=== PATIENT | female | born 1955 | race Caucasian/White ===

== ENCOUNTER 2017-03-17 08:41 | Day surgery (SDC) | payer BC ==
[~2017-03-17 08:41] MED LIST: Lactated Ringers 1,000 ML IV SCH; Lidocaine 1%/Sod Bicarbonate in NS 8.4% 1 ML Syringe IV PRN; Sodium Chloride 0.9% 10 ML Syringe FLUSH PRN
--- NOTE | 2017-03-17 09:46 | PCM.PREANE ---
Preanesthetic Assessment - Anesthesia/Transfusion/Family Hx Anesthesia History: Prior Anesthesia Without Reaction Family History of Anesthesia Reaction: No Transfusion History: No Prior Transfusion(s) - Review of Systems General: No Symptoms Pulmonary: No Symptoms Cardiovascular: No Symptoms Gastrointestinal: No symptoms Neurological: No Symptoms Other: Reports: Neck Pain (sore today because of job) - Physical Assessment NPO Status Date: 03/16/17 NPO Status Time: 21:30 O2 Sat by Pulse Oximetry: 96 Respiratory Rate: 16 Vital Signs: Last Vital Signs Temp 99.0 F 03/17/17 08:55 Pulse 86 03/17/17 08:55 Resp 16 03/17/17 08:55 BP 121/88 03/17/17 08:55 Pulse Ox 96 03/17/17 08:55 Height: 5 ft 7 in Weight: 73.028 kg ASA Class: 2 Mental Status: Alert & Oriented x3 Airway Class: Mallampati = 1 Dentition: Reports: Normal Dentition Thyro-Mental Finger Breadths: 3 Mouth Opening Finger Breadths: 3 ROM/Head Extension: Full Lungs: Clear to auscultation, Normal respiratory effort Cardiovascular: Regular Rate, Regular Rhythm - Allergies Allergies/Adverse Reactions: Allergies Allergy/AdvReac Type Severity Reaction Status Date / Time milk Allergy Hives Verified 03/16/17 14:25 nut - unspecified [nut] Allergy Hives Verified 03/16/17 14:25 soybean Allergy Bronchospas Verified 03/16/17 14:25 ms venom-honey bee Allergy Cannot Verified 03/16/17 14:25 [bee venom (honey bee)] Remember - Blood Blood Available: No - Acknowledgements Anesthesia Type Planned: MAC Pt an Appropriate Candidate for the Planned Anesthesia: Yes Alternatives and Risks of Anesthesia Discussed w Pt/Guardian: Yes Pt/Guardian Understands and Agrees with Anesthesia Plan: Yes PreAnesthesia Questionnaire HEENT History: Reports: Otitis media, Other (see below) Other HEENT History: wears glasses, ear pain, eustachian tube dysfunction, sinus infection Cardiovascular History: Reports: High cholesterol, Hypertension Respiratory History: Reports: Other (see below) Other Respiratory History: cough Gastrointestinal History: Reports: None Genitourinary History: Reports: None 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) Other OB/BYN History: cervicitis with nabothian cyst Musculoskeletal History: Reports: Arthritis (hip pain), Back pain, chronic, Other (see below) Other Musculoskeletal History: back pain, restless leg syndrome Neurological History: Reports: None Psychiatric History: Reports: None Endocrine/Metabolic History: Reports: None Hematologic History: Reports: None Immunologic History: Reports: None Oncologic (Cancer) History: Reports: None Dermatologic History: Reports: Other (see below) Other Dermatologic History: contact dermatitis, pruritis - Past Surgical History HEENT Surgical History: Reports: Naso-sinus surgery GI Surgical History: Reports: Cholecystectomy, Colonoscopy Musculoskeletal Surgical History: Reports: Other (see below) Other Musculoskeletal Surgeries/Procedures:: R foot surgery, back surgery x 3 with hardware - SUBSTANCE USE Smoking Status *Q: Current Every Day Smoker (43 years- .5ppd) Tobacco Use Within Last Twelve Months: Cigarettes Second Hand Smoke Exposure: Yes Days Per Week of Alcohol Use: 1 (only social) Recreational Drug Use History: No - HOME MEDS Home Medications: Home Meds Amitriptyline HCl [Amitriptyline HCl] 25 mg PO BEDTIME 03/16/17 [History] Aspirin [Ecotrin] 81 mg PO DAILY 03/16/17 [History] Calcium Carbonate [Calcium] 600 mg PO BID 03/16/17 [History] Cyclobenzaprine [Flexeril] 10 mg PO BID PRN 03/16/17 [History] Gabapentin [Gabapentin] 300 mg PO BEDTIME 03/16/17 [History] Hydrocodone/Acetaminophen [Hydrocodon-Acetaminophn 10-325] 1 tab PO Q8H PRN 07/25 [History] Lisinopril/Hydrochlorothiazide [Lisinopril-Hctz 20-12.5 mg Tab] 1 tab PO DAILY 03/16/17 [History] Mometasone Furoate 1 applic TOP ASDIRECTED PRN 03/16/17 [History] Triamcinolone Acetonide [Triamcinolone Acetonide 0.1% Crm] 1 applic TOP BID 07/25 [History] carBAMazepine [Carbamazepine] 300 mg PO BID 03/16/17 [History] traMADol HCl [Tramadol HCl] 50 mg PO BEDTIME 03/16/17 [History] - CURRENT (IN HOUSE) MEDS Current Meds: Current Medications Lactated Ringer's (Ringers, Lactated) 1,000 mls @ 125 mls/hr IV ASDIRECTED KIM Lidocaine/Sodium Bicarbonate (Buffered Lidocaine 1% In Ns 8.4%) 0.25 ml IV ONETIME PRN PRN Reason: Prior to IV Start Sodium Chloride (Saline Flush) 10 ml FLUSH ASDIRECTED PRN PRN Reason: Keep Vein Open
[2017-03-17] MEDS ORDERED: Propofol 200 MG/20 ML SDV ONE (10:26)
[2017-03-17] MEDS ORDERED: fentaNYL 100 MCG/2 ML SDV ONE (10:26)
--- NOTE | 2017-03-17 11:08 | PCM.OPNOTE ---
- General Post-Op/Procedure Note Date of Surgery/Procedure: 03/17/17 Operative Procedure(s): colonoscopy with cold forceps polypectomy of a small splenic flexure polyp Findings: 1. external hemorrhoids 2. splenic flexure polyp less than 8 mm Pre Op Diagnosis: screening colonosocpy Post-Op Diagnosis: 1. external hemorrhoid. 2. splenic flexure polyp Anesthesia Technique: MAC, Moderate sedation Primary Surgeon: Hai Spangler Pathology: polyp splenic flexure 8 mm EBL in mLs: 0 Complications: None Condition: Good Free Text/Narrative:: After adequate IV sedation and analgesia was obtained the patient was placed on her left side. Perianal inspection and digital rectal examination were remarkable for uncomplicated external hemorrhoids. A lubricated colonoscope was inserted into the rectum then advanced under direct vision to the cecum without difficulty. The bowel preparation was excellent. The cecum, right colon, transverse, and descending colons were endoscopically normal with no mass lesions or inflammatory changes seen. The sigmoid had 8 mm polyp, which was removed with cold forceps. The specimen was retrieved and sent to pathology. The post-prostatectomy area was hemostatic. The rectum in both views was unremarkable. Photographs were taken for the patient's record. Air was removed, as I finished the procedure, which she tolerated well.
--- NOTE | 2017-03-17 11:12 | PCM48HPAN ---
Post Anesthesia Note - EVALUATION WITHIN 48HRS OF ANESTHETIC Vital Signs in Normal Range: Yes Patient Participated in Evaluation: Yes Respiratory Function Stable: Yes Airway Patent: Yes Cardiovascular Function Stable: Yes Hydration Status Stable: Yes Pain Control Satisfactory: Yes Nausea and Vomiting Control Satisfactory: Yes Mental Status Recovered: Yes
[2017-03-17 11:14] VITALS: BP 115/67
== END 2017-03-17 11:25 | disposition home or self-care (01) ==
LOC: JD.SDS 08:41
PROVIDERS: ATTEND Surgery
DX: Z12.11 Encounter for screening for malignant neoplasm of colon (principal); D12.3 Benign neoplasm of transverse colon; K64.4 Residual hemorrhoidal skin tags; I10 Essential (primary) hypertension; E78.5 Hyperlipidemia, unspecified; E78.00 Pure hypercholesterolemia, unspecified; G25.81 Restless legs syndrome; Z79.899 Other long term (current) drug therapy; Z79.82 Long term (current) use of aspirin; Z98.890 Other specified postprocedural states
CPT/HCPCS: 45380; 88305; J3010; J7120; 00810; J2704

== ENCOUNTER 2020-02-02 17:01 | Emergency (ER) | payer BC ==
--- NOTE | 2020-02-02 17:14 | EDM.PDOC ---
ED HPI GENERAL MEDICAL PROBLEM - General Chief Complaint: Lower Extremity Injury/Pain Stated Complaint: R FOOT INJURY Time Seen by Provider: 02/02/20 17:06 Source of Information: Reports: Patient History Limitations: Reports: No Limitations - History of Present Illness INITIAL COMMENTS - FREE TEXT/NARRATIVE: Patient is a 64-year-old female who presents with complaints of right foot pain and swelling after falling in her kitchen. Patient states she stood up too fast and fell. States this has happened to her in the past as well. She is unsure how she fell but thinks she may have landed on the foot. She denies any previous injury to this extremity. Right Foot Pain Score (Numeric/FACES): 3 - Related Data Allergies Allergy/AdvReac Type Severity Reaction Status Date / Time nut - unspecified [nut] Allergy Hives Verified 02/02/20 17:23 soybean Allergy Bronchospas Verified 02/02/20 17:23 ms venom-honey bee Allergy Cannot Verified 02/02/20 17:23 [bee venom (honey bee)] Remember Home Meds: Home Meds Amitriptyline HCl 25 mg PO BEDTIME 03/16/17 [History] Aspirin [Ecotrin EC] 81 mg PO DAILY 03/16/17 [History] Calcium Carbonate [Calcium] 600 mg PO BID 03/16/17 [History] Cyclobenzaprine [Flexeril] 10 mg PO BID PRN 03/16/17 [History] Gabapentin 300 mg PO BEDTIME 03/16/17 [History] Hydrocodone/Acetaminophen [Hydrocodon-Acetaminophn 10-325] 1 tab PO Q8H PRN 07/25 [History] Lisinopril/Hydrochlorothiazide [Lisinopril-Hctz 20-12.5 mg Tab] 1 tab PO DAILY 03/16/17 [History] Mometasone Furoate 1 applic TOP ASDIRECTED PRN 03/16/17 [History] Triamcinolone Acetonide [Triamcinolone Acetonide 0.1% Crm] 1 applic TOP BID 07/25 [History] carBAMazepine [Carbamazepine] 300 mg PO BID 03/16/17 [History] traMADol HCl [Tramadol HCl] 50 mg PO BEDTIME 03/16/17 [History] Past Medical History HEENT History: Reports: Otitis Media, Other (See Below) Other HEENT History: wears glasses, ear pain, eustachian tube dysfunction, sinus infection Cardiovascular History: Reports: High Cholesterol, Hypertension Respiratory History: Reports: Other (See Below) Other Respiratory History: cough Gastrointestinal History: Reports: None Genitourinary History: Reports: None 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 DROSOPHERE OPERATOR History: cervicitis with nabothian cyst Musculoskeletal History: Reports: Arthritis, Back Pain, Chronic, Other (See Below) Other Musculoskeletal History: back pain, restless leg syndrome Neurological History: Reports: None Psychiatric History: Reports: None Endocrine/Metabolic History: Reports: None Hematologic History: Reports: None Immunologic History: Reports: None Oncologic (Cancer) History: Reports: None Dermatologic History: Reports: Other (See Below) Other Dermatologic History: contact dermatitis, pruritis - Past Surgical History HEENT Surgical History: Reports: Naso-Sinus Surgery Musculoskeletal Surgical History: Reports: Other (See Below) Review of Systems - Review of Systems Review Of Systems: Comprehensive ROS is negative, except as noted in HPI. ED EXAM, GENERAL - Physical Exam Exam: See Below Exam Limited By: No Limitations General Appearance: Alert, WD/WN, No Apparent Distress Respiratory/Chest: No Respiratory Distress, Lungs Clear, Normal Breath Sounds, No Accessory Muscle Use, Chest Non-Tender Cardiovascular: Normal Peripheral Pulses, Regular Rate, Rhythm, No Edema, No Gallop, No JVD, No Murmur, No Rub Extremities: Other (Slight swelling to the ventral distal aspect of the foot. No obvious deformity. She has full range of motion of the metatarsals. CMS intact.) Neurological: Alert, Oriented, CN II-XII Intact, Normal Cognition, Normal Gait, Normal Reflexes, No Motor/Sensory Deficits Psychiatric: Normal Affect, Normal Mood Skin Exam: Warm, Dry, Intact, Normal Color, No Rash Course - Vital Signs Last Recorded V/S: Last Vital Signs Temp 98.4 F 02/02/20 17:15 Pulse 95 02/02/20 17:15 Resp 16 02/02/20 17:15 BP 118/95 H 02/02/20 17:15 Pulse Ox 97 02/02/20 17:15 - Orders/Labs/Meds Orders: Active Orders 24 hr Category Date Time Status Foot Comp Min 3V Rt [CR] Stat Exams 02/02/20 17:10 Taken - Re-Assessments/Exams Free Text/Narrative Re-Assessment/Exam: 02/02/20 17:58 X-ray of the right foot shows a nondisplaced fracture of the third and fourth proximal metatarsals. Short leg splint was applied. Patient has crutches in her vehicle so she does not need them to be supplied here. I recommend not weightbearing until she follows up with orthopedics next week. Recommend she call Dr. Crowley to schedule an appointment for the end of the week. Discharge instructions as documented. Departure - Departure Time of Disposition: 17:59 Disposition: Home, Self-Care 01 Condition: Fair Clinical Impression: Closed fracture of metatarsal bone - Discharge Information *PRESCRIPTION DRUG MONITORING PROGRAM REVIEWED*: No *COPY OF PRESCRIPTION DRUG MONITORING REPORT IN PATIENT JUSTICE: No Instructions: Metatarsal Fracture With Rehab-SportsMed, Crutch Use, Adult, Easy -to-Read Referrals: Jordyn Liz PA-C [Primary Care Provider] - Scout Crowley MD [Physician] - Forms: ED Department Discharge Additional Instructions: You were seen in the emergency department today for pain to your right foot after falling. X-rays did show nondisplaced fractures of the third and fourth metatarsals. You have been placed in a splint. Leave this intact until you see orthopedics. You should be nonweightbearing with crutches until that time as well. Recommend that you ice and elevate the extremity when at rest. You may use [id number] Tylenol or ibuprofen as needed for discomfort. Recommend that you call to schedule an appointment with orthopedics for late next week. The number to schedule with Dr. Conn as listed below. If you experience any symptoms of concern, please do not hesitate to return to the emergency department. Sepsis Event Note - Focused Exam Vital Signs: Vital Signs Temp Pulse Resp BP Pulse Ox 02/02/20 17:15 98.4 F 95 16 118/95 H 97 Date Exam was Performed: 02/02/20 Time Exam was Performed: 17:58 - My Orders Last 24 Hours: My Active Orders 02/02/20 17:10 Foot Comp Min 3V Rt [CR] Stat - Assessment/Plan Last 24 Hours: My Active Orders 02/02/20 17:10 Foot Comp Min 3V Rt [CR] Stat
[2020-02-02 17:22] VITALS: BP 118/95; PULSE 95
--- NOTE | 2020-02-02 17:58 | CR ---
Right foot: 3 views of the right foot were obtained. Comparison: No previous foot exam. Fractures are seen within the base of the second, third and fourth metatarsals. Alignment remains close to anatomic. Small bony density is noted off the dorsal navicular bone which appears old. No additional fracture or other bony abnormality is seen. Impression: 1. Nondisplaced fractures involving the base of the second through fourth metatarsals. Diagnostic code #3 Study was dictated in MDT
== END 2020-02-02 18:06 | disposition home or self-care (01) ==
LOC: JD.ED 17:01
DX: S92.324A Nondisplaced fracture of second metatarsal bone, right foot, initial encounter for closed fracture (principal); S92.334A Nondisplaced fracture of third metatarsal bone, right foot, initial encounter for closed fracture; S92.344A Nondisplaced fracture of fourth metatarsal bone, right foot, initial encounter for closed fracture; I10 Essential (primary) hypertension; E78.00 Pure hypercholesterolemia, unspecified; M19.90 Unspecified osteoarthritis, unspecified site; Z91.018 Allergy to other foods; Z91.030 Bee allergy status; Z79.899 Other long term (current) drug therapy; Z79.82 Long term (current) use of aspirin; W19.XXXA Unspecified fall, initial encounter; Y92.000 Kitchen of unspecified non-institutional (private) residence as the place of occurrence of the external cause
CPT/HCPCS: 29515; 73630-26-RT; 73630-RT; 99283; 99283-25